=== PATIENT | female | born 1995 | race Caucasian/White ===

== ENCOUNTER 2020-03-01 19:50 | Emergency (ER) | payer OTHER ==
--- NOTE | 2020-03-01 20:23 | ER Document Report ---
ED Medical Screen (RME) - General Chief Complaint: Psych Problem Stated Complaint: PSYCH EVAL Time Seen by Provider: 03/01/20 20:19 Mode of Arrival: Ambulatory Information source: Patient Notes: 24-year-old female presented to ED for suicidal ideation. She states she has been thinking about slitting her wrist but thought that that might be too painful/then she thought of hanging herself or monoxide poisoning. She states she is never tried to kill herself in the past but she has been severely depressed. She states a year and a half ago she moved to [place] and got to her who is in the [facility]. She states she is lived here a year and a half away from her family and he has not wanted her to have a job so she has no job and no family around. She states she has no money that is her own. She states that then they were and she is no way to go home to her family. She states she has cut herself 1 time about 3 months ago but then has not been doing any cutting since then. She states she has been severely depressed. Patient is alert and oriented very sad very tearful. I have greeted and performed a rapid initial assessment of this patient. A comprehensive ED assessment and evaluation of the patient, analysis of test results and completion of medical decision making process will be conducted by an additional ED providers. - Related Data Allergies/Adverse Reactions: No Known Allergies Allergy (Unverified 03/01/20 20:19) Physical Exam - Vital signs Vitals: Temp Pulse Resp BP Pulse Ox 98.5 F 109 H 20 135/84 H 97 03/01/20 19:55 03/01/20 19:55 03/01/20 19:55 03/01/20 19:55 03/01/20 19:55 Course - Vital Signs Vital signs: Temp Pulse Resp BP Pulse Ox 98.5 F 109 H 20 135/84 H 97 03/01/20 19:55 03/01/20 19:55 03/01/20 19:55 03/01/20 19:55 03/01/20 19:55
[2020-03-01 21:14] LABS: ABSOLUTE EOSINOPHILS # (AUTO) 0.1 10^3/uL (0.0-0.6); ABSOLUTE LYMPHOCYTES (AUTO) 2.4 10^3/uL (0.5-4.7); ABSOLUTE MONOCYTES (AUTO) 0.8 10^3/uL (0.1-1.4); ABSOLUTE NEUT (AUTO) 4.5 10^3/uL (1.7-8.2); APPEARANCE,URINE CLEAR; BASOPHILS % (AUTO) 0.4 % (0-2); BILIRUBIN,URINE NEGATIVE (NEGATIVE); COLOR,URINE YELLOW; EOSINOPHILS % (AUTO) 0.8 % (0-6); GLUCOSE, URINE NEGATIVE (NEGATIVE); HEMATOCRIT 38.2 % (36.0-47.0); HEMOGLOBIN 12.7 g/dL (12.0-15.5); KETONES,URINE NEGATIVE (NEGATIVE); LEUKOCYTE ESTERASE,URINE NEGATIVE (NEGATIVE); LYMPHOCYTES % (AUTO) 30.9 % (13-45); MEAN CORPUSCULAR HEMOGLOBIN 29.5 pg (27.0-33.4); MEAN CORPUSCULAR HGB CONC 33.3 g/dL (32.0-36.0); MEAN CORPUSCULAR VOLUME 89 fl (80-97); NITRITE,URINE NEGATIVE (NEGATIVE); PLATELET COUNT 326 10^3/uL (150-450); PROTEIN,URINE NEGATIVE (NEGATIVE); RED BLOOD COUNT 4.31 10^6/uL (3.72-5.28); RED CELL DISTRIBUTION WIDTH 13.2 % (11.5-14.0); SEGMENTED NEUTROPHILS % (AUTO) 57.9 % (42-78); TOTAL CELLS COUNTED % (AUTO) 100 %; URINE SPECIFIC GRAVITY 1.017; UROBILINOGEN,URINE NEGATIVE mg/dL (<2.0); WHITE BLOOD COUNT 7.8 10^3/uL (4.0-10.5)
[2020-03-01 21:27] LABS: ALBUMIN 4.1 g/dL (3.5-5.0); ALKALINE PHOSPHATASE 71 U/L (38-126); ANION GAP 8 (5-19); ASPARTATE AMINO TRANSFERASE 25 U/L (14-36); BILIRUBIN,TOTAL 0.3 mg/dL (0.2-1.3); BLOOD UREA NITROGEN 13 mg/dL (7-20); CALCIUM 9.3 mg/dL (8.4-10.2); CARBON DIOXIDE 30 mmol/L (22-30); CHLORIDE 101 mmol/L (98-107); GLUCOSE 88 mg/dL (75-110); POTASSIUM 4.6 mmol/L (3.6-5.0); TOTAL PROTEIN 7.4 g/dL (6.3-8.2)
[2020-03-01 21:30] LABS: ACETAMINOPHEN < 10 ug/mL (10-30); ALCOHOL < 10 mg/dL (NONE DETECTED); SALICYLATE < 1.0 mg/dL (2.0-20.0)
[2020-03-01 21:34] LABS: URINE AMPHETAMINES SCREEN NEGATIVE; URINE BARBITURATES SCREEN NEGATIVE; URINE BENZODIAZEPINES SCREEN NEGATIVE; URINE COCAINE SCREEN NEGATIVE; URINE MARIJUANA (THC) SCREEN NEGATIVE; URINE METHADONE SCREEN NEGATIVE; URINE PHENCYCLIDINE SCREEN NEGATIVE
--- NOTE | 2020-03-01 21:45 | ER Document Report ---
ED General - General Chief Complaint: Psych Problem Stated Complaint: PSYCH EVAL Time Seen by Provider: 03/01/20 20:19 Primary Care Provider: TANIYA RODRIGUEZ MD [Primary Care Provider] - Follow up as needed Mode of Arrival: Ambulatory - HPI Notes: This is a 24-year-old female who presents to the emergency department for evaluation of suicidal ideation. The patient has a history of PTSD, depression, and a history of suicide attempt. She states that she moved here with her lorene dan, who was in the . She has no friends outside of his, and he did not want her to work out of the home. They are now getting . She does not feel comfortable going back to [facility], where there from, as she thinks she would be "a burden on her family." She states that she used to be on medication for depression and and anxiety, but she did not go get it filled several months ago. She is having thoughts of hanging herself, her carbon monoxide poisoning. No homicidal ideation. No visual or auditory hallucination. The patient states she did have a cough several months ago, but denies any other medical issues at this time. She states her cough is resolved. - Related Data Allergies/Adverse Reactions: No Known Allergies Allergy (Unverified 03/01/20 20:19) Home Medications: states she is supposed to be on minipress, propanolol, trazadone, oral BC pills and one other that can't recall at this time. took venlafaxine this am Past Medical History - General Information source: Patient - Social History Smoking Status: Current Some Day Smoker Chew tobacco use (# tins/day): No Frequency of alcohol use: Social Drug Abuse: None Family History: Reviewed & Not Pertinent Patient has homicidal ideation: No Pulmonary Medical History: Reports: Hx Asthma - Childhood, Hx Pneumonia Psychiatric Medical History: Reports: Hx Anxiety, Hx Depression, Hx Post Traumatic Stress Disorder Review of Systems - Review of Systems Neurological/Psychological: See HPI -: Yes All other systems reviewed and negative Physical Exam - Vital signs Vitals: Temp Pulse Resp BP Pulse Ox 98.5 F 109 H 20 135/84 H 97 03/01/20 19:55 03/01/20 19:55 03/01/20 19:55 03/01/20 19:55 03/01/20 19:55 - Notes Notes: It is a 24-year-old female who appears her stated age. She has a very depressed and flat affect, makes diminished eye contact, but is cooperative with examiner. Affect is very flat and depressed. Vital signs reviewed, please refer to chart. Head is normocephalic, atraumatic. Pupils equal round, reactive to light. Neck is supple without meningismus. Heart is regular rate and rhythm. Lungs are clear to auscultation bilaterally. Abdomen is soft, nontender, normoactive bowel sounds throughout. Extremities without cyanosis, clubbing. Posterior calves are nontender. Peripheral pulses are equal. Skin is warm and dry. Patient is awake, alert, neurological exam is nonfocal. Course - Re-evaluation Re-evalutation: 03/01/20 21:44 Patient presents to the emergency department for evaluation. She had laboratory investigations as ordered through IVC protocol. She was evaluated by the psychosocial team, who agrees that this patient is a significant risk, and 24- hour hold orders are placed. We are looking for placement at this time. Labs, EKG, unremarkable. We will go ahead and medically clear her at this point. - Vital Signs Vital signs: Temp Pulse Resp BP Pulse Ox 98.5 F 109 H 20 135/84 H 97 03/01/20 20:19 03/01/20 19:55 03/01/20 19:55 03/01/20 19:55 03/01/20 19:55 - Laboratory Result Diagrams: 03/01/20 20:45 03/01/20 20:45 Laboratory results interpreted by me: 03/01/20 03/01/20 20:45 20:45 Urine Ascorbic Acid 40 H Salicylates < 1.0 L Acetaminophen < 10 L - EKG Interpretation by Me Additional EKG results interpreted by me: 03/01/20 21:44 Sinus tachycardia with a rate of 107 bpm. Normal axis and intervals. No acute ST changes concerning for ischemia or infarction. Discharge - Discharge Clinical Impression: Depression with suicidal ideation Condition: Stable Disposition: OTHER Referrals: TANIYA RODRIGUEZ MD [Primary Care Provider] - Follow up as needed
--- NOTE | 2020-03-01 22:25 | PSYCHOLOGICAL NOTE ---
Psych Note - Psych Note Date seen by psych provider: 03/01/20 Time seen by psych provider: 21:15 Psych Note: Reason For Consult: Suicidal ideation Consent Permissions: Provided Discloses her brought her to [facility] ED for psychiatric assistance. She discloses that she has been suffering from suicidal ideation. Patient discloses multiple plans reporting she has not decided on which one however states she does want to . Patient reports that she has been for her for 2 weeks and now "has nothing." She reports that the thought of starting over is too much and does not want to go back to her family in [place] and "be a burden." Patient reports she has diagnosis of major depressive disorder and PTSD. She states she had stopped taking her medications a few months ago. She confirms she did obtain a provider in the local area and went to an appointment however did not fill the prescription medications. She reports she had difficulty getting her medications in connection to her marital discord and transportation issues. She reports she has been inpatient psychiatric treatment once previous in 2013. Patient is alert and orientated to person, place, time and circumstance. Mood and affect are very flat. Patient reports suicidal ideation with multiple plans stating she wants to . Patient denies homicidal ideation. Delusions are absent and behaviors congruent with an intact reality based presentation ie organized and linear thought process. Eye contact is poor as patient looks down into her lap during entire evaluation and refused to make eye contact. Conversational speech is monotone. Intellectual abilities appear to be within the average range. Attention and concentration are fair. Insight, judgment, impulse control are fair. Diagnosis: Marital discord Major depressive disorder per history provided by patient PTSD per history provided by patient Impression\\plan: Patient is recommended for IVC; paperwork is signed, faxed to deputy head and placed in patient's chart. Patient identifies recent stressor of from her . She has diagnosis of major depressive disorder and abruptly stopped her medication a few months ago. Patient presents very flat monotone and refuses to make eye contact. She has 1 previous inpatient psychiatric treatment in 2013. Patient is in need of medication stabilization. Dr. Horn was consulted to care management of this patient; attending physicians in agreement with recommendations and disposition.
[2020-03-02] MEDS ORDERED: DIPHENHYDRAMINE HCL 50 MG CAPSULE PO ONE (03:39)
--- NOTE | 2020-03-02 07:34 | EKG REPORT ---
SEVERITY:- OTHERWISE NORMAL ECG - SINUS TACHYCARDIA : Confirmed by: Dewayne Zaidi MD 02-Mar-2020 07:32:29
[2020-03-02 12:03] VITALS: BP 131/78
--- NOTE | 2020-03-02 14:21 | PSYCHOLOGICAL NOTE ---
Psych Note - Psych Note Date seen by psych provider: 03/02/20 Time seen by psych provider: 13:00 Psych Note: Patient is a 24 year old female who presented to the [facility] ED last evening via POV for suicidal ideation with plan to cut her wrists but chooses not to "too painfu l" and instead thinks of carbon monoxide poisoning and hanging. Patient told medical staff 2-3 months ago she attempted cutting to proximal left forearm. Patient reported drinking alcohol (unknown amount of liquor) yesterday. She identified previous inpatient in [place], [place] in 2012. Patient was tearful, had poor eye contact, and monotone responses during triage assessment. Patient and 2 weeks ago. She had been staying with a friend the past 10 days. She noted depression for the past year with an increase recently. Her outpatient Provider is Dr. Uriostegui at [facility], she was there 2-3 weeks ago, medication changes took place but she never got them filled. Patient reported being off medications for 2-3 months. Patient was subsequently put on a FULL IVC. Attending nurse noted patient has been depressed with flat affect. Today started placement efforts and patient accepted to [facility]. Will move forward with that placement at this time. Informed patient of acceptance. She had been in bed sleeping. She presented depressed with flat affect. Conversational speech was monotone. When asked if she wanted anyone notified of plan of care she mentioned she had two numbers on her chart (ex Mitchell and Sister Kisha) and she wanted them to be informed. She was slow to get up and out of bed to talk with ex and sister on the phone. Her demeanor and tone did not change when she spoke to ex and sister on the phone.
== END 2020-03-02 14:02 | disposition other institution (70) ==
LOC: ER 19:50
DX: F32.9 Major depressive disorder, single episode, unspecified (principal); R45.851 Suicidal ideations; F17.200 Nicotine dependence, unspecified, uncomplicated; J45.909 Unspecified asthma, uncomplicated
CPT/HCPCS: 36415; 80053; 80307; 81001; 84703; 85025; 93005; 93010; 99285